=== PATIENT | male | born 1960 | race Caucasian/White ===

== ENCOUNTER → 2020-01-26 09:35 | Outpatient (BNVA) | payer BC, SELFPAY | PROVIDERS: Family Provider Nurse Practitioner Family; PCP Nurse Practitioner Family; Visit Provider Nurse Practitioner Family | DX: E11.9 Type 2 diabetes mellitus without complications (principal); E78.5 Hyperlipidemia, unspecified; Z53.20 Procedure and treatment not carried out because of patient's decision for unspecified reasons | CPT/HCPCS: 80053; 80061; 82044; 83036; 85025 ==

== ENCOUNTER → 2020-07-29 09:01 | Outpatient (BNVA) | payer BC, SELFPAY | PROVIDERS: Family Provider Nurse Practitioner Family; PCP Nurse Practitioner Family; Visit Provider Nurse Practitioner Family | DX: Z12.5 Encounter for screening for malignant neoplasm of prostate (principal); E11.9 Type 2 diabetes mellitus without complications | CPT/HCPCS: 80053; 80061; 83036; 85025; G0103 ==

== ENCOUNTER → 2020-11-06 12:55 | Outpatient (BNVA) | payer BC, SELFPAY | PROVIDERS: Family Provider Nurse Practitioner Family; PCP Nurse Practitioner Family; Visit Provider Nurse Practitioner Family | DX: Z20.828 Contact with and (suspected) exposure to other viral communicable diseases (principal) | CPT/HCPCS: 87635 ==

== ENCOUNTER → 2020-11-25 11:03 | Outpatient (BNVA) | payer BC, SELFPAY | PROVIDERS: Family Provider Nurse Practitioner Family; PCP Nurse Practitioner Family; Visit Provider Nurse Practitioner Family | DX: Z20.828 Contact with and (suspected) exposure to other viral communicable diseases (principal) | CPT/HCPCS: 87635 ==

== ENCOUNTER → 2021-02-03 09:10 | Outpatient (BNVA) | payer BC, SELFPAY | PROVIDERS: Family Provider Nurse Practitioner Family; PCP Nurse Practitioner Family; Visit Provider Family Medicine | DX: E11.9 Type 2 diabetes mellitus without complications (principal); E78.5 Hyperlipidemia, unspecified | CPT/HCPCS: 80053; 80061; 83036; 84443; 85025 ==

== ENCOUNTER → 2021-04-30 10:36 | Outpatient (BNVA) | payer BC, SELFPAY | PROVIDERS: Family Provider Nurse Practitioner Family; PCP Nurse Practitioner Family; Visit Provider Family Medicine | DX: E11.9 Type 2 diabetes mellitus without complications (principal); E78.5 Hyperlipidemia, unspecified | CPT/HCPCS: 80053; 80061; 83036; 84443; 85025 ==

== ENCOUNTER → 2021-07-22 09:00 | Outpatient (BNVA) | payer BC, SELFPAY | PROVIDERS: Family Provider Nurse Practitioner Family; PCP Nurse Practitioner Family; Visit Provider Family Medicine | DX: E11.9 Type 2 diabetes mellitus without complications (principal); E78.5 Hyperlipidemia, unspecified | CPT/HCPCS: 80053; 80061; 83036; 84443; 85025 ==

== ENCOUNTER → 2022-06-17 15:25 | Outpatient (BNVA) | payer BC, SELFPAY | PROVIDERS: Family Provider Nurse Practitioner Family; PCP Family Medicine; Visit Provider Family Medicine | DX: J02.9 Acute pharyngitis, unspecified (principal) | CPT/HCPCS: 87071; 87880 ==

== ENCOUNTER → 2022-06-26 09:07 | Outpatient (BNVA) | payer BC, SELFPAY | PROVIDERS: Family Provider Nurse Practitioner Family; PCP Family Medicine; Visit Provider Family Medicine | DX: Z12.5 Encounter for screening for malignant neoplasm of prostate (principal); E78.5 Hyperlipidemia, unspecified; E11.9 Type 2 diabetes mellitus without complications | CPT/HCPCS: 80053; 80061; 83036; 85025; G0103 ==

== ENCOUNTER → 2022-11-16 08:16 | Outpatient (BNVA) | payer BC, SELFPAY | PROVIDERS: Family Provider Nurse Practitioner Family; PCP Family Medicine; Visit Provider Family Medicine | DX: E78.5 Hyperlipidemia, unspecified (principal); E11.9 Type 2 diabetes mellitus without complications | CPT/HCPCS: 80053; 80061; 83036; 84443; 85025 ==

== ENCOUNTER → 2023-04-19 09:30 | Outpatient (BNVA) | payer MEDICARE, OTHER, SELFPAY | PROVIDERS: Family Provider Nurse Practitioner Family; PCP Family Medicine; Visit Provider Family Medicine | DX: E11.9 Type 2 diabetes mellitus without complications (principal); E78.5 Hyperlipidemia, unspecified; Z12.5 Encounter for screening for malignant neoplasm of prostate | CPT/HCPCS: 80053; 80061; 83036; 84443; G0103 ==

== ENCOUNTER → 2024-01-17 09:10 | Outpatient (BNVA) | payer MEDICARE, OTHER, SELFPAY | PROVIDERS: Family Provider Nurse Practitioner Family; PCP Family Medicine; Visit Provider Family Medicine | DX: E78.5 Hyperlipidemia, unspecified (principal); E11.9 Type 2 diabetes mellitus without complications; Z12.5 Encounter for screening for malignant neoplasm of prostate | CPT/HCPCS: 80053; 80061; 83036; 84443; 85025; G0103 ==

== ENCOUNTER 2024-05-04 17:40 | Outpatient (CLI) | payer MEDICARE, OTHER, SELFPAY ==
--- NOTE | 2024-05-04 17:59 | XR_ITS ---
WS: [id number] Exam: XR knee LT 3V* [id number] Date/Time of Exam: 05/04/2024 5:59 PM Reason For Exam: M25.562 - Pain in left knee No fracture noted. The joint compartments are relatively well-maintained. 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 Moderate-sized effusion in the suprapatellar bursa. Tendinous calcifications along the a nterior patella. XR/XR knee LT 3V* [id number] IMPRESSION: 1. Minimal degenerative change. Moderate size joint effusion.
== END 2024-05-04 17:41 | disposition home or self-care (01) ==
LOC: RAD 17:42
PROVIDERS: Family Provider Nurse Practitioner Family; PCP Family Medicine; Visit Provider Family Medicine
DX: M25.562 Pain in left knee (principal); M25.462 Effusion, left knee; M65.262 Calcific tendinitis, left lower leg
CPT/HCPCS: 73562

== ENCOUNTER → 2024-05-25 08:05 | Outpatient (BNVA) | payer MEDICARE, OTHER, SELFPAY | PROVIDERS: Family Provider Nurse Practitioner Family; PCP Family Medicine; Visit Provider Family Medicine | DX: E11.9 Type 2 diabetes mellitus without complications (principal); I10 Essential (primary) hypertension; E78.5 Hyperlipidemia, unspecified | CPT/HCPCS: 80053; 80061; 83036; 84443; 85025 ==

== ENCOUNTER → 2024-06-01 15:20 | Outpatient (BNVA) | payer MEDICARE, OTHER, SELFPAY | PROVIDERS: Family Provider Nurse Practitioner Family; PCP Family Medicine; Visit Provider Family Medicine | DX: J02.9 Acute pharyngitis, unspecified (principal); H66.92 Otitis media, unspecified, left ear; I10 Essential (primary) hypertension; B35.1 Tinea unguium | CPT/HCPCS: 87071; 87880 ==

== ENCOUNTER → 2024-06-15 09:01 | Outpatient (BNVA) | payer MEDICARE, OTHER, SELFPAY | PROVIDERS: Family Provider Nurse Practitioner Family; PCP Family Medicine; Visit Provider Physician Assistant | DX: M17.0 Bilateral primary osteoarthritis of knee; M25.561 Pain in right knee; M25.562 Pain in left knee | CPT/HCPCS: 73560; 73565 ==

== ENCOUNTER 2024-06-15 10:45 | Outpatient (CLI) | payer MEDICARE, OTHER, SELFPAY | END 2024-06-15 10:46 | disposition home or self-care (01) | LOC: SPT 10:46 | PROVIDERS: Family Provider Nurse Practitioner Family; PCP Family Medicine; Visit Provider Physician Assistant | DX: Z46.89 Encounter for fitting and adjustment of other specified devices (principal); M17.12 Unilateral primary osteoarthritis, left knee | CPT/HCPCS: 97760; 99203; L1851 ==

== ENCOUNTER → 2024-07-14 10:56 | Outpatient (BNVA) | payer MEDICARE, OTHER, SELFPAY | PROVIDERS: Family Provider Nurse Practitioner Family; PCP Family Medicine; Visit Provider Student in an Organized Health Care Education/Training Program | DX: M79.642 Pain in left hand (principal); M67.442 Ganglion, left hand | CPT/HCPCS: 73130; 99204 ==

== ENCOUNTER 2024-08-16 05:47 | Day surgery (SDC) | payer MEDICARE, OTHER, SELFPAY ==
[2024-08-16] VITALS (7 sets, daily range): BP systolic 123–171; BP diastolic 74–92; PULSE 50–63; RESP 15–18; TEMP 36.1–36.6; O2SAT 95–99; BMI 31.6
[2024-08-16 06:20] LABS: Glucose Point of Care 122 mg/dL (70-110)
[2024-08-16] MEDS: acetaminophen 1,000 MG/100 ML PIGGYBACK 400 MG IV (06:20)
[2024-08-16] MEDS: sodium chloride 0.9% 1,000 ML 30 ML IV (06:21)
[2024-08-16] MEDS: ketorolac 30 mg/mL INJ IVP (06:23)
--- NOTE | 2024-08-16 06:55 | W.PM.OPSFHP ---
Same Day Surgery H&P Indication for Procedure/HPI DATE OF PROCEDURE: August 16, 2024 CHIEF COMPLAINT/INDICATIONFOR SURGICAL PROCEDURE: Left small finger dorsal cyst PREOP DIAGNOSIS: Left small finger dorsal cyst PLANNED PROCEDURE: Operation Date: 08/16/24 07:00 Proposed Procedures p small finger dorsal cyst excision(Left) - Hong Schafer DO Medications/Allergies* Home Medications Medication Instructions Recorded Confirmed Type vit C 250 mg-vit E 90 mg-zinc 40 1 tab PO BID 06/17/22 08/15/24 History mg-copper 1 [id number] capsule (PreserVision AREDS-2) meloxicam 15 mg tablet 15 mg PO DAILY 08/15/24 08/15/24 History Allergies/Adverse Reactions Allergy/AdvReac Type Severity Reaction Status Date / Time No Known Allergies Allergy Verified 08/16/24 06:53 Current Medications: Generic Name Dose Route Start Last Admin Trade Name Freq PRN Reason Stop Dose Admin Sodium Chloride 1,000 mls @ 30 mls/hr 08/16/24 06:00 08/16/24 06:21 Sodium Chloride 0.9% IV 08/17/24 05:59 30 mls/hr .Q24H THEO Administration Pertinent History/Comorbid Conditions* Medical History (Updated 07/15/24 @ 17:16 by Hong Schafer DO) Toenail fungus Hyperlipemia Diabetes mellitus Surgical History (Updated 07/29/20 @ 08:44 by LEIDY Rodriguez) No pertinent past surgical history Social History Smoking and tobacco/nicotine status: former use of tobacco/nicotine Alcohol intake: never Substance/Drug Use: never Lives independently: Yes Household members: spouse Marital status: Current occupational status: unemployed Current gender identity: Male Special cecille needs: No Agree to transfusion: Yes Pertinent Exam Findings alert, oriented x 3, operative site marked and procedure specific exam findings please refer to detailed orthopedic examination on 07/14/2024: Examination of the left hand: Examination left hand demonstrates patient able to make a full fist flex and extend his digits. No tenderness to palpation over the A1 pulleys no tenderness palpation over the carpal tunnel negative Tinel's negative median nerve compression test. Patient has a palpable soft mobile cyst over the dorsal aspect of the middle phalanx of the left small finger. Patient has positive Tinel's over this area as well as tender to palpation over the cyst. No significant decrease in range of motion to the DIP or PIP joint. Fingers warm well-perfused brisk cap refill less than 2 seconds. Recommendations Surgery/Procedure today Other Plans: Patient is here today for a left small finger dorsal cyst excision. He understands the ins and outs procedure the risk benefits complication alternatives surgery and through shared decision-making elects proceed with surgical intervention. All questions have been answered at this time. Will proceed with surgery today. Coding Level of Care Code Acute Code for [facility] Fwd
[2024-08-16] MEDS: ceFAZolin 2,000 MG in sodium chloride 0.9% (plus) 50 ML 100 MG IV (07:00)
--- NOTE | 2024-08-16 07:05 | ANES.PREANE2 ---
Pre-Anesthetic Assessment Height/Weight: Height 1.85 m Weight 108.862 kg Temp Pulse Resp BP Pulse Ox O2 Del Method 97.6 F 63 18 171/92 98 Room Air 08/16/24 05:58 08/16/24 05:58 08/16/24 05:58 08/16/24 05:58 08/16/24 05:58 08/16/24 05:58 Preop Diagnosis: Left small finger dorsal cyst Operation Date: 08/16/24 07:00 Proposed Procedures p small finger dorsal cyst excision(Left) - Hong Marin, Familial anesthetic complications: None Was Beta Lorenzo taken within 24 hours: N/A Was Clonidine taken within 24 hours: N/A Last intake: Intake Last Liquid Date 08/15/24 Last Liquid Time 21:00 Last Solid Date 08/15/24 Last Solid Time 19:00 Social No alcohol and No tobacco Exam alert, oriented x 3, clear to auscultation bilaterally and regular rate & rhythm Airway Mallampati: Class III Dentition: other (pulled teeth) CV/HEM Hypertension Metabolic Diabetes Mellitus Anesthetic Plan ASA status: 2 Anesthesia: MAC Risk of > 500 ml blood loss (7ml/kg in children): No Medications/Allergies Home Medications Medication Instructions Recorded Confirmed Last Taken Type vit C 250 mg-vit E 90 mg-zinc 40 1 tab PO BID 06/17/22 08/15/24 08/15/24 08:00 History mg-copper 1 oi-ilsmhp-jvxfre capsule (PreserVision AREDS-2) metformin 1,000 mg tablet 1,000 mg PO BID #180 tabs 04/11/24 08/16/24 08/15/24 18:00 Rx pravastatin 20 mg tablet 20 mg PO DAILY #90 tabs 04/11/24 08/16/24 08/15/24 18:00 Rx ibuprofen 800 mg tablet 800 mg PO Q8H #30 tabs 05/03/24 08/15/24 Unknown Rx lisinopril 20 mg tablet 20 mg PO DAILY #30 tabs 05/24/24 08/16/24 08/15/24 18:00 Rx tadalafil 20 mg tablet 20 mg PO ONCE PRN sexual activity 05/24/24 08/15/24 Unknown Rx #30 tabs diclofenac sodium 1 % topical gel 4 g topical QID #100 grams 06/15/24 08/15/24 Unknown Rx (Voltaren Arthritis Pain) 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 #1 ea 06/15/24 07/14/24 Unknown Rx terbinafine HCl 250 mg tablet 250 mg PO DAILY #30 tabs 08/03/24 08/15/24 08/15/24 08:00 Rx meloxicam 15 mg tablet 15 mg PO DAILY 08/15/24 08/15/24 08/14/24 08:00 History Allergies Allergy/AdvReac Type Severity Reaction Status Date / Time No Known Allergies Allergy Verified 08/16/24 06:53 Current Medications Generic Name Dose Route Start Last Admin Trade Name Freq PRN Reason Stop Dose Admin Sodium Chloride 1,000 mls @ 30 mls/hr 08/16/24 06:00 08/16/24 06:21 Sodium Chloride 0.9% IV 08/17/24 05:59 30 mls/hr .Q24H THEO Administration PFSH Anesthesia Medical History Toenail fungus Hyperlipemia Diabetes mellitus Surgical History No pertinent past surgical history Social History Smoking and tobacco/nicotine status: former use of tobacco/nicotine Alcohol intake: never Substance/Drug Use: never Lives independently: Yes Household members: spouse Marital status: Current occupational status: unemployed Current gender identity: Male Special cecille needs: No Agree to transfusion: Yes Data Anesthesia Cardiac Studies: No Data to Display
[2024-08-16] MEDS: lidocaine 1% 10 ML INJ 5 ML INJECTION (07:29)
[2024-08-16] MEDS: ROPivacaine 0.5% SDV 30 mL 25 MG INJECTION (07:30)
--- NOTE | 2024-08-16 07:37 | P.BOP_ITS ---
Date of Procedure: 08/16/2024 Surgeon: Hong Schafer DO Poultry Husbandman(s): Kavin Schafer PA-C Procedure(s) performed: Left small finger dorsal cyst excision (1 cm x 0.5 cm x 0.5 cm) Findings of the procedure(s): Patient was found to have a left small finger dorsal cyst that had involvement with patient's dorsal veins. This was excised without issues or complications and sent for pathology. Patient taken to PACU in stable condition Estimated blood loss: 1 mL Specimen(s) removed: Left small finger dorsal cyst excised and sent for pathology Post-operative diagnosis: Left small finger dorsal cyst
--- NOTE | 2024-08-16 07:40 | P.OP_ITS ---
Operative Report Date of procedure: August 16, 2024 Surgeon: Hong Schafer DO [employer]: Kavin Schafer PA-C: PA was necessary for assistance in this case with hand positioning to execute the procedure, retraction and protection of neurovascular structures as well as to assist with wound closure and dressing application. Procedure: Post-op diagnosis: Left?Small?finger dorsal?cyst Procedure done: Left Small finger dorsal?cyst?excision Surgeon: Hong Schafer DO Estimated blood loss: 1 mL Tourniquet 9 minutes IV fluids: 400 mL Complications: None Findings: See operative report narrative Condition: stable Disposition: same day Brief History: Patient presents to the outpatient setting with findings consistent with a Left Small finger dorsal?cyst.? Patient has been worked up in the outpatient setting and is failed conservative treatment approach.? Patient has Left Small finger noticeable dorsal?cyst?that appears dorsal mid substance of the middle phalanx. Pt wishes to proceed with surgical intervention.? We talked about the risk benefits complications and alternatives with surgical nonsurgical treatment options.? Understanding risk of surgery pt agrees to proceed with a Left Small finger dorsal?cyst?excision.? All questions answered. Procedure: Patient was seen evaluated in the preoperative holding area.? Consent was reviewed and signed with patient.? Correct extremity was then marked.? Patient was then seen and evaluated by the anesthesia department once cleared for surgery patient was then taken back to the operative suite patient was placed in supine position and all bony prominences well-padded the patient was properly secured to the bed.? Armboard was applied to the Left upper extremity nonsterile tourniquet applied to the left upper extremity. This point time the Left upper extremity was then prepped and draped in standard orthopedic fashion.? A final timeout was performed.? Patient received appropriate preoperative antibiotics. Prior to proceeding with incision sites I then performed digital block of the Left Small finger under sterile aseptic technique Esmarch tourniquet used exsanguinate the left upper extremity 250 mmHg ? Left Small finger was then identified as well as the dorsal?cyst?over the middle phalanx over the midline of the finger. At this point in time I then made a direct longitudinal incision directly over the cyst/mass. Immediately encountered multiple torturous venous like structures associated with a cyst this was all above the extensor tendon sheath and did not associate with the extensor tendon sheath. At this point in time I then subsequently switched to Littler dissection scissors and spread in plane with the cyst and circumferentially dissected out the left small finger cyst to its entirety trackingright up underneath the skin edges to the dorsal aspect of the PIP joint. This did not appear to communicate into the joint itself this looked to be more likely a possible venous malformation. This was excised by bipolar electrocautery at the base and stalk and cauterized the stalk's as well as circumferentially around the bed of where the cyst was. This was then removed and sent for pathology cyst measured 1 cm x 0.5 cm x 0.5 cm. At this point in time thorough irrigation performed. tourniquet was deflated. wound bed was then thoroughly irrigated hemostasis was maintained with bipolar electrocautery.? Next I closed the incision with interrupted nylon suture.? Incision sites were then dressed with Xeroform 4 x 4's Kerlix Trav wrap and an Hai wrap.? Patient was then awakened from anesthesia and taken to PACU in stable condition. Disposition: Patient taken to PACU in stable condition recovering well.? Dressing on in place clean dry and intact.? Patient was receive appropriate discharge instruction as well as pain medication postoperatively.? Patient may be allowed weightbearing as tolerated to the Left hand and encourage range of motion once dressing come down after 72 hours.? Patient to follow-up with me in the office in 2 weeks.? Patient understands and agrees with current plan.? All questions answered.
--- NOTE | 2024-08-16 07:53 | P.PCN_ITS ---
PACU note Narrative: Patient is a 64-year-old male who just underwent a finger cyst excision. Patient transferred to PACU in stable condition. Pain is well controlled. Dressing on hand is dry and in place. Patient's fingers are warm and well- perfused. Patient can wiggle fingers. normal cap refill under 2 seconds. Patient has normal elbow range of motion. Sensation hand intact. Exam: awake Disposition: discharged
--- NOTE | 2024-08-16 08:40 | ANE.PACU2 ---
Inpatient post-anesthesia follow up: Airway intact: Yes Vital signs: Temperature 98 F Pulse Rate 59 Respiratory Rate 15 Blood Pressure 138/85 Pulse Oximetry 97 Oxygen Delivery Me thod Room Air Oxygen Flow Rate Fraction of Inspir ed Oxygen Hydration adequate: Yes Nausea and vomiting: No Pain level: 1 Mental status: Baseline
== END 2024-08-16 08:40 | disposition home or self-care (01) ==
PROVIDERS: PCP Family Medicine; Visit Provider Student in an Organized Health Care Education/Training Program
PROC: (CPT 26160; principal; 2024-08-16 07:00)
DX: L72.0 Epidermal cyst (principal); E78.5 Hyperlipidemia, unspecified; E11.9 Type 2 diabetes mellitus without complications; Z87.891 Personal history of nicotine dependence; I10 Essential (primary) hypertension
CPT/HCPCS: 26160; 36416; 82962; 88305; 88311; J0131; J0690; J1885; J2250; J2704; J2795; J3010; J7030

== ENCOUNTER → 2024-08-29 08:00 | Outpatient (BNVA) | payer MEDICARE, OTHER, SELFPAY | PROVIDERS: PCP Family Medicine; Visit Provider Physician Assistant | DX: M67.442 Ganglion, left hand (principal); Z98.890 Other specified postprocedural states | CPT/HCPCS: 99024 ==

== ENCOUNTER → 2024-09-20 09:33 | Outpatient (BNVA) | payer MEDICARE, OTHER, SELFPAY | PROVIDERS: PCP Nurse Practitioner Family; Visit Provider Nurse Practitioner Family | DX: E11.9 Type 2 diabetes mellitus without complications (principal); I10 Essential (primary) hypertension; E78.5 Hyperlipidemia, unspecified; B35.1 Tinea unguium; Z12.11 Encounter for screening for malignant neoplasm of colon | CPT/HCPCS: 80053; 80061; 82607; 83036; 84443; 85025 ==

== ENCOUNTER → 2024-10-17 09:10 | Outpatient (BNVA) | payer MEDICARE, OTHER, SELFPAY | PROVIDERS: PCP Nurse Practitioner Family; Visit Provider Physician Assistant | DX: M17.0 Bilateral primary osteoarthritis of knee | CPT/HCPCS: 99213 ==

== ENCOUNTER → 2024-12-25 09:27 | Outpatient (BNVA) | payer MEDICARE, OTHER, SELFPAY | PROVIDERS: Family Provider Nurse Practitioner Family; PCP Nurse Practitioner Family; Visit Provider Nurse Practitioner Family | DX: E11.9 Type 2 diabetes mellitus without complications (principal) | CPT/HCPCS: 80053; 80061; 83036; 83721; 84443; 85025 ==

== ENCOUNTER → 2025-01-10 09:52 | Outpatient (BNVA) | payer MEDICARE, OTHER, SELFPAY | PROVIDERS: Family Provider Nurse Practitioner Family; PCP Nurse Practitioner Family; Visit Provider Podiatrist Foot & Ankle Surgery | DX: B35.1 Tinea unguium (principal); E11.69 Type 2 diabetes mellitus with other specified complication; Z79.84 Long term (current) use of oral hypoglycemic drugs | CPT/HCPCS: 99203 ==

== ENCOUNTER → 2025-03-26 09:49 | Outpatient (BNVA) | payer MEDICARE, OTHER, SELFPAY | PROVIDERS: Family Provider Nurse Practitioner Family; PCP Nurse Practitioner Family; Visit Provider Nurse Practitioner Family | DX: E11.9 Type 2 diabetes mellitus without complications (principal); Z12.5 Encounter for screening for malignant neoplasm of prostate | CPT/HCPCS: 80053; 80061; 82043; 83036; 85025; G0103 ==

== ENCOUNTER → 2025-04-18 09:44 | Outpatient (BNVA) | payer MEDICARE, OTHER, SELFPAY | PROVIDERS: Family Provider Nurse Practitioner Family; PCP Nurse Practitioner Family; Visit Provider Podiatrist Foot & Ankle Surgery | DX: E11.8 Type 2 diabetes mellitus with unspecified complications (principal); B35.1 Tinea unguium; Z79.84 Long term (current) use of oral hypoglycemic drugs | CPT/HCPCS: 99213 ==

== ENCOUNTER → 2025-04-26 13:08 | Outpatient (BNVA) | payer MEDICARE, OTHER, SELFPAY | PROVIDERS: Family Provider Nurse Practitioner Family; PCP Nurse Practitioner Family; Visit Provider Nurse Practitioner Family | DX: L82.1 Other seborrheic keratosis (principal); D22.39 Melanocytic nevi of other parts of face; S60.012A Contusion of left thumb without damage to nail, initial encounter; X58.XXXA Exposure to other specified factors, initial encounter; L85.8 Other specified epidermal thickening; D22.5 Melanocytic nevi of trunk; L91.8 Other hypertrophic disorders of the skin | CPT/HCPCS: 99203 ==

== ENCOUNTER → 2025-07-04 13:12 | Outpatient (BNVA) | payer MEDICARE, OTHER, SELFPAY | PROVIDERS: Family Provider Nurse Practitioner Family; PCP Nurse Practitioner Family; Visit Provider Nurse Practitioner Family | DX: E11.9 Type 2 diabetes mellitus without complications (principal) | CPT/HCPCS: 80053; 80061; 83036; 84443; 85025 ==

== ENCOUNTER 2025-07-26 07:39 | Outpatient (CLI) | payer MEDICARE, OTHER, SELFPAY ==
--- NOTE | 2025-07-26 08:00 | US_ITS ---
WS: [id number] RIGHT UPPER QUADRANT ULTRASOUND HISTORY: Elevated LFTs. COMPARISON: None available. Liver: 17.2 cm in length. Mild hepatomegaly and moderate hepatic steatosis. No mass or bile duct dilatation. Portal Vein: Normal hepatopetal flow with monophasic waveform. Gallbladder: Normally distended gallbladder with no stones or wall thickening. CBD: 0.4 cm Pancreas: Obscured by bowel gas. Right kidney: 11.3 cm in length. Normal size and echogenicity. No hydronephrosis or mass. Aorta and IVC: Minimal atherosclerosis aorta. Partially visualized aorta. No ascites. US/US liver [id number] IMPRESSION: 1. Mild hepatomegaly with moderate hepatic steatosis. 2. Negative gallbladder. 3. No hepatobiliary duct dilatation.
== END 2025-07-26 07:40 | disposition home or self-care (01) ==
LOC: RAD 07:40
PROVIDERS: Family Provider Nurse Practitioner Family; PCP Nurse Practitioner Family; Visit Provider Nurse Practitioner Family
DX: R79.89 Other specified abnormal findings of blood chemistry (principal); R16.0 Hepatomegaly, not elsewhere classified; K76.0 Fatty (change of) liver, not elsewhere classified
CPT/HCPCS: 76705

== ENCOUNTER → 2025-08-08 12:32 | Outpatient (BNVA) | payer MEDICARE, OTHER, SELFPAY | PROVIDERS: Family Provider Nurse Practitioner Family; PCP Nurse Practitioner Family; Visit Provider Nurse Practitioner Family | DX: S60.012A Contusion of left thumb without damage to nail, initial encounter (principal); X58.XXXA Exposure to other specified factors, initial encounter; D18.01 Hemangioma of skin and subcutaneous tissue; L91.8 Other hypertrophic disorders of the skin; L82.1 Other seborrheic keratosis; D48.5 Neoplasm of uncertain behavior of skin | CPT/HCPCS: 11102; 99213 ==